=== PATIENT | female | born 2005 | race Two or more races ===

== ENCOUNTER 2024-12-11 17:26 | Emergency (ER) | payer OTHER ==
[~2024-12-11] VITALS: Ht 175.3 cm; Wt 80.9 kg
[2024-12-11 17:30] VITALS: TEMP 97.9
--- NOTE | 2024-12-11 17:41 | ED.PDOC ---
Musculoskeletal HPI Comments 19 y.o female with PMHx of seizures, presents to the ED for a chief complaint of right shoulder pain and dislocation. Patient reports trying to get on her horse about 45 minutes prior to ED arrival, heard a pop to her shoulder and immediately had pain and limited ROM. Patient reports previous history of shoulder dislocation with no surgical intervention. Patient denies any numbness or tingling sensation to her shoulder. Time Seen by MD: 17:34 Reviewed Notes: Nurses Notes, Medications, Allergies Allergies: Coded Allergies: NO KNOWN ALLERGIES (Unverified , 05/30/21) Information Source: Patient Mode of Arrival: Ambulatory Location: Right Extremity Location: Shoulder Timing: Minutes (45) Severity: Moderate Able to Move Extremity: No Bear Weight: Limited Pain: Moderate Mechanism: None Circumstances: Other Onset of Symptoms: After Trauma Symptoms: Pain DVT Risk Factors: NONE History of: Shoulder Dislocation Associated signs and symptoms: Shoulder pain Past Medical History PAST MEDICAL HISTORY: Seizures Past Medical History (Other): right shoulder dislocations Surgical History: Denies all surgeries SILL WORKER History: No Pertinent SILL WORKER History Family History Family History: Reviewed,noncontributory to illness Social History Smoker: Non-Smoker Alcohol: Denies ETOH Use Drugs: Denies Drug Use Lives In: Home Constitutional: denies: chills, diaphoresis, fatigue, fever, malaise, sweats, weakness, others EENTM: denies: blurred vision, double vision, ear bleeding, ear discharge, ear drainage, ear pain, ear ringing, eye pain, eye redness, hearing loss, mouth pain, mouth swelling, nasal discharge, nose bleeding, nose congestion, nose pain, photophobia, tearing, throat pain, throat swelling, voice changes, others Respiratory: denies: cough, hemoptysis, orthopnea, SOB at rest, shortness of breath, SOB with excertion, stridor, wheezing, others Cardiovascular: denies: chest pain, dizzy spells, diaphoresis, Dyspnea on exertion, edema, irregular heart beat, left arm pain, lightheadedness, palpitations, PND, syncope, others Gastrointestinal: denies: abdomen distended, abdominal pain, blood streaked bowels, constipated, diarrhea, dysphagia, difficulty swallowing, hematemesis, melena, nausea, poor appetite, poor fluid intake, rectal bleeding, rectal pain, vomiting, others Genitourinary: denies: abnormal vagina bleeding, burning, dyspareunia, dysuria, flank pain, frequency, hematuria, incontinence, pain, , vagina discharge, urgency, others Neurological: denies: dizziness, fainting, headache, left sided numbness, left sided weakness, numbness, paresthesia, pre-existing deficit, right sided numbness, right sided weakness, seizure, speech problems, tingling, tremors, weakness, others Musculoskeletal: reports: others (right shoulder pain ); denies: back pain, gout, joint pain, joint swelling, muscle pain, muscle stiffness, neck pain Integumetry: denies: bruises, change in color, change in hair/nails, dryness, laceration, lesions, lumps, rash, wounds, others Allergic/Immunocompromised: denies: Difficulty Healing, Frequent Infections, Hives, Itching, others Hematologic/Lymphatic: denies: anemia, blood clots, easy bleeding, easy bruising, swollen glands, others Endocrine: denies: excessive hunger, excessive sweating, excessive thirst, excessive urination, flushing, intolerance to cold, intolerance to heat, unexplained weight gain, unexplained weight loss, others Psychiatric: denies: anxiety, bipolar disorder, depression, hopeless, panic disorder, schizophrenia, sleepless, suicidal, others All Other Systems: Reviewed and Negative Physical Exam General Appearance: Moderate Distress HEENT: Normal ENT Inspection, Pharynx Normal, TMs Normal Neck: Full Range of Motion, Non-Tender, Normal, Normal Inspection Respiratory: Chest Non-Tender, Lungs Clear, No Accessory Muscle Use, No Respiratory Distress, Normal Breath Sounds Cardiovascular: No Edema, No JVD, No Murmur, No Gallop, Normal Peripheral Pulses, Regular Rate/Rhythm Breast Exam: Deferred Gastrointestinal: No Organomegaly, Non Tender, No Pulsatile Mass, Normal Bowel Sounds, Soft Genitalia: Deferred Pelvic: Deferred Rectal: Deferred Extremities: No calf tenderness, Normal capillary refill, No pedal edema Musculoskeletal : Location: Right Extremity Location: Shoulder Apperance: Deformity, Limited ROM, Tenderness: Moderate Neurologic: Alert, 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 Was a procedure done?: Yes Sedation Sedation?: No, Yes Informed consent obtained: Yes Sedation start time: 18:25 Sedation end time: 18:35 Sedation total time: 10 MINUTES Differential Diagnosis EXT Differential Diagnosis: Fracture, Sprain, Dislocation, Contusion, Strain X-Ray, Labs, Meds, VS Vital Signs Date Time Temp Pulse Resp B/P (MAP) Pulse Ox O2 Delivery O2 Flow Rate FiO2 12/11/24 18:35 92 26 146/90 (108) 100 12/11/24 18:31 132 25 155/100 (118) 100 12/11/24 18:11 88 12/11/24 18:09 97 20 130/86 (101) 99 12/11/24 18:00 Room Air* 0 21 12/11/24 17:30 97.9 91 18 143/100 (114) 100 97.9 Current Medications Medications (Trade) Dose Ordered Sig/Huyen Route Start Time Stop Time Status Last Admin Etomidate 20 mg ONCE ONCE IV 12/11/24 17:45 12/11/24 17:46 DC 12/11/24 18:25 After the procedure, a post reduction x-ray was done which shows proper placement The patient was placed in a shoulder immobilizer The patient is being discharged and will follow up with the primary care doctor The patient will return to the emergency department's condition worsens. Images Reviewed?: Images reviewed and evaluated by me Time of 1ST Reevaluation: 17:38 Reevaluation 1ST: Unchanged Patient Education/Counseling: Diagnosis, Treatment, Prognosis, Need For Follow Up Family Education/Counseling: No Family Present Departure 1 Departure Time of Disposition: 19:30 Impression: Primary Impression: Anterior shoulder dislocation Qualified Codes: S43.014A - Anterior dislocation of right humerus, initial encounter Disposition: HOME / SELF CARE / HOMELESS Condition: Fair Discharged With: Self Critical Care Note Critical Care Time?: No Stability Stability form required: No I personally scribed for OMID SALDANA MD ([email or web address]) on 12/11/24 at 17:41. El ectronically submitted by Dotty Keating ([facility]). OMID SALDANA MD Dec 11, 2024 17:41
[2024-12-11] MEDS: ETOMIDATE (2MG/ML) 20ML VIAL IV ONE (18:25)
[2024-12-11 18:35] VITALS: BP 146/90; PULSE 92; RESP 26; O2SAT 100
--- NOTE | 2024-12-11 20:37 | DVH ---
EXAM: XY R SHOULDER 2+ VIEW XRAY REASON FOR EXAM: POST RIGHT SHOULDER REDUCTION TECHNIQUE: Internally and externally rotated AP views and Y-view of the right shoulder are submitted for review. COMPARISON: None available for comparison FINDINGS: The bones demonstrate normal mineralization. There is no acute fracture or dislocation. Th ere is no widening of the acromioclavicular joint. The soft tissues are grossly unremarkable. IMPRESSION: No acute fracture or dislocation.
== END 2024-12-11 20:21 | disposition home or self-care (01) ==
LOC: ER 17:26
DX: S43.084A Other dislocation of right shoulder joint, initial encounter (principal); X58.XXXA Exposure to other specified factors, initial encounter; Y93.89 Activity, other specified; Y92.89 Other specified places as the place of occurrence of the external cause; Y99.8 Other external cause status
CPT/HCPCS: 23650; 29105; 73030; 99152